=== PATIENT | male | born 1985 | race Caucasian/White ===

== ENCOUNTER 2017-02-24 14:11 | Emergency (ER) | payer SELFPAY ==
[~2017-02-24] VITALS: Ht 172.7 cm; Wt 90.6 kg
[2017-02-24] MEDS ORDERED: SKELAXIN800 MG PO (15:35)
[2017-02-24] MEDS ORDERED: NAPROSYN500 MG PO (15:35)
[2017-02-24 15:47] VITALS: BP 128/71
== END 2017-02-24 15:47 | disposition home or self-care (01) ==
LOC: EME 14:11
DX: S16.1XXA Strain of muscle, fascia and tendon at neck level, initial encounter (principal); M43.6 Torticollis; X50.9XXA Other and unspecified overexertion or strenuous movements or postures, initial encounter; Y93.83 Activity, rough housing and horseplay; Z87.891 Personal history of nicotine dependence; Z90.81 Acquired absence of spleen
CPT/HCPCS: 99281; 99283; J1885

== ENCOUNTER 2017-05-31 10:59 | Inpatient (IN) | payer OTHER ==
[~2017-05-31] VITALS: Ht 172.7 cm; Wt 85.7 kg
[~2017-05-31 10:59] MED LIST: NAPROSYN500 MG PO; SKELAXIN800 MG PO
[2017-05-31 12:10] LABS: PLATELET COUNT 438 K/uL (156-360)
[2017-05-31 12:15] LABS: HEMATOCRIT 50.8 % (38.0-50.0); HEMOGLOBIN 17.6 G/DL (12.5-16.6); MCH 30.3 PG (29.0-34.0); MCHC 34.6 G/DL (30.0-36.0); MCV 87.6 FL (86-99); RBC DIS.WIDTH-CV 13.5 % (11.8-14.6); RBC DIS.WIDTH-SD 43.2 % (39-53)
[2017-05-31 12:17] LABS: WHITE BLOOD COUNT 32.2 K/uL (4.1-10.2)
[2017-05-31 12:20] LABS: ALBUMIN 4.6 g/dL (3.2-4.8); CHLORIDE 106 mEq/L (99-109); POTASSIUM 4.2 mEq/L (3.7-5.4); SODIUM 140 mEq/L (136-147)
[2017-05-31 12:22] LABS: GLUCOSE 109 mg/dL (70-99); TOTAL PROTEIN 8.8 g/dL (6.4-8.3)
[2017-05-31 12:26] LABS: ALKALINE PHOSPHATASE 93 IU/L (3-129); CREATININE 0.9 mg/dL (0.6-1.3); GFR ESTIMATE (CALCULATED) > 59 mL/min/ (58.99-99999)
[2017-05-31 12:27] LABS: AST (GOT) 29 IU/L (2-34); UREA NITROGEN (BUN) 19 mg/dL (9-23)
[2017-05-31 12:29] LABS: ALT (GPT) 30 IU/L (3-49)
[2017-05-31 13:32] LABS: LIPASE 21 U/L (1.0-51.0)
[2017-05-31 13:53] LABS: DIRECT BILIRUBIN 0.1 mg/dL (0.0-0.3)
[2017-05-31 13:57] LABS: TROP-I INTERPRETATION NEGATIVE; TROPONIN-I < 0.01 ng/mL (0.0-0.30)
[2017-05-31 14:49] LABS: APPEARANCE SL.HAZY ((CLEAR)); BILIRUBIN NEGATIVE; BLOOD NEGATIVE; COLOR YELLOW ((YELLOW)); GLUCOSE (STRIP) NEGATIVE; KETONES 20; LEUKOCYTES NEGATIVE; NITRITE NEGATIVE; PROTEIN (STRIP) NEGATIVE; SPECIFIC GRAVITY 1.023 (1.000-1.030); UROBILINOGEN 0.2 MG/DL (0.2-1.0)
[2017-05-31 14:54] LABS: BACTERIA NONE SEEN /HPF; EPITHELIAL CELLS NONE SEEN /HPF; MUCUS 2+ /LPF; RED BLOOD CELLS 0-5 /HPF (0-5); UCUL ADDED? NO; WHITE BLOOD CELLS 0-5 /HPF (0-5)
[2017-05-31 15:50] LABS: C DIFF TOXIN NEGATIVE (NEGATIVE)
[2017-05-31] MEDS ORDERED: B-COMPLEX-VITA1 EACH PO (16:30)
[2017-05-31] MEDS ORDERED: ASCORBIC ACID500 M3 PO (16:30)
[2017-05-31 19:30] VITALS: BP 135/84
[2017-05-31 19:34] VITALS: BP 135/84
[2017-05-31 23:31] VITALS: BP 131/80
[2017-06-01 03:52] VITALS: BP 116/65
[2017-06-01 06:22] LABS: BASOPHIL (%) 0.4 % (0-1); BASOPHIL COUNT 0.1 K/uL (0-0.1); EOSINOPHIL (%) 0.5 % (0-5); EOSINOPHIL COUNT 0.1 K/uL (0-0.3); HEMATOCRIT 42.3 % (38.0-50.0); IMMATURE GRANULOCYTE (%) 0.5 % (0.0-0.7); LYMPHOCYTE (%) 18.3 % (15-42); LYMPHOCYTE COUNT 3.6 K/uL (1.0-2.8); MCH 29.8 PG (29.0-34.0); MCHC 33.6 G/DL (30.0-36.0); MCV 88.9 FL (86-99); MONOCYTE (%) 11.6 % (3-12); MONOCYTE COUNT 2.3 K/uL (0-0.8); NEUTROPHIL (%) 68.7 % (45-76); NEUTROPHIL COUNT 13.5 K/uL (1.8-6.4); PLATELET COUNT 378 K/uL (156-360); RBC DIS.WIDTH-SD 45.2 % (39-53); RED BLOOD COUNT 4.76 M/uL (4.00-5.50); WHITE BLOOD COUNT 19.6 K/uL (4.1-10.2)
[2017-06-01 06:24] LABS: CHLORIDE 109 MEQ/L (99-109); CREATININE 0.8 MG/DL (0.6-1.3); GFR ESTIMATE (CALCULATED) > 59 mL/min/ (58.99-99999); GLUCOSE 87 mg/dL (70-99); POTASSIUM 3.8 MEQ/L (3.7-5.4); SODIUM 141 MEQ/L (136-147); UREA NITROGEN (BUN) 13 mg/dL (9-23)
[2017-06-01 06:26] LABS: HEMOGLOBIN 14.2 G/DL (12.5-16.6)
[2017-06-01 07:58] VITALS: BP 133/92
[2017-06-01 10:56] VITALS: BP 130/78
[2017-06-01 15:48] VITALS: BP 138/90
[2017-06-01 18:50] VITALS: BP 127/85
[2017-06-01 23:00] VITALS: BP 117/78
[2017-06-02 04:00] VITALS: BP 130/76
[2017-06-02 06:03] LABS: HEMATOCRIT 44.7 % (38.0-50.0); HEMOGLOBIN 14.7 G/DL (12.5-16.6); MCH 29.5 PG (29.0-34.0); MCHC 32.9 G/DL (30.0-36.0); MCV 89.6 FL (86-99); PLATELET COUNT 393 K/uL (156-360); RBC DIS.WIDTH-SD 45.9 % (39-53); RED BLOOD COUNT 4.99 M/uL (4.00-5.50)
[2017-06-02 06:33] LABS: CHLORIDE 108 MEQ/L (99-109); CREATININE 0.8 MG/DL (0.6-1.3); GFR ESTIMATE (CALCULATED) > 59 mL/min/ (58.99-99999); GLUCOSE 83 mg/dL (70-99); MAGNESIUM 2.1 mg/dl (1.3-2.7); POTASSIUM 4.1 MEQ/L (3.7-5.4); SODIUM 140 MEQ/L (136-147); UREA NITROGEN (BUN) 12 mg/dL (9-23)
[2017-06-02] MEDS ORDERED: FLAGYL500 MG PO (08:15)
[2017-06-02] MEDS ORDERED: CIPRO500 MG PO (08:15)
[2017-06-02] MEDS ORDERED: ACIDOPHILUS LA1 EAC1 PO (08:27)
[2017-06-02 09:00] VITALS: BP 149/96
[2017-06-02 11:32] VITALS: BP 128/85
[2017-06-03] MEDS ORDERED: ZOFRAN ODT4 MG PO (13:55)
== END 2017-06-02 14:35 | disposition home or self-care (01) | DRG 872 ==
LOC: EME 10:59 → 4EAST 17:53 → EDOF 17:53 → ENRESERV 18:07 → 4EAST 19:14
PROVIDERS: Emergency Medicine; Hospitalist
DX: A41.89 Other specified sepsis (principal); A08.4 Viral intestinal infection, unspecified; Z90.81 Acquired absence of spleen; F17.210 Nicotine dependence, cigarettes, uncomplicated; E66.9 Obesity, unspecified; Z68.28 Body mass index [BMI] 28.0-28.9, adult; E86.0 Dehydration; K43.2 Incisional hernia without obstruction or gangrene; K42.9 Umbilical hernia without obstruction or gangrene; K52.29 Other allergic and dietetic gastroenteritis and colitis; K57.30 Diverticulosis of large intestine without perforation or abscess without bleeding
CPT/HCPCS: 71010; 74177; 80048; 80053; 80076; 81003; 82248; 83605; 83690; 83735; 84484; 85025; 85027; 87040; 87177; 87493; 99281; 99285; J0500; J1200; J1650; J1956; J2405; J7030; S0028; S0030

== ENCOUNTER 2017-06-03 07:55 | Emergency (ER) | payer OTHER ==
[~2017-06-03] VITALS: Ht 172.7 cm; Wt 90.4 kg
[~2017-06-03 07:55] MED LIST changes: +ACIDOPHILUS LA1 EAC1 PO; +ASCORBIC ACID500 M3 PO; +B-COMPLEX-VITA1 EACH PO; +CIPRO500 MG PO; +FLAGYL500 MG PO
[2017-06-03 10:26] LABS: BASOPHIL (%) 0.4 % (0-1); BASOPHIL COUNT 0.1 K/uL (0-0.1); EOSINOPHIL (%) 0.6 % (0-5); EOSINOPHIL COUNT 0.1 K/uL (0-0.3); HEMATOCRIT 46.2 % (38.0-50.0); HEMOGLOBIN 16.2 G/DL (12.5-16.6); IMMATURE GRANULOCYTE (%) 0.6 % (0.0-0.7); LYMPHOCYTE COUNT 3.3 K/uL (1.0-2.8); MCH 30.4 PG (29.0-34.0); MCHC 35.1 G/DL (30.0-36.0); MCV 86.7 FL (86-99); MONOCYTE (%) 9.8 % (3-12); MONOCYTE COUNT 1.9 K/uL (0-0.8); NEUTROPHIL (%) 71.6 % (45-76); PLATELET COUNT 399 K/uL (156-360); RBC DIS.WIDTH-CV 13.4 % (11.8-14.6); RBC DIS.WIDTH-SD 42.3 % (39-53); RED BLOOD COUNT 5.33 M/uL (4.00-5.50); WHITE BLOOD COUNT 19.6 K/uL (4.1-10.2)
[2017-06-03 10:36] LABS: ALBUMIN 3.9 g/dL (3.2-4.8)
[2017-06-03 10:37] LABS: CHLORIDE 110 mEq/L (99-109); POTASSIUM 3.9 mEq/L (3.7-5.4); SODIUM 138 mEq/L (136-147)
[2017-06-03 10:39] LABS: GLUCOSE 102 mg/dL (70-99)
[2017-06-03 10:42] LABS: ALKALINE PHOSPHATASE 73 IU/L (3-129)
[2017-06-03 10:43] LABS: CREATININE 0.7 mg/dL (0.6-1.3); GFR ESTIMATE (CALCULATED) > 59 mL/min/ (58.99-99999)
[2017-06-03 10:44] LABS: AST (GOT) 25 IU/L (2-34); UREA NITROGEN (BUN) 15 mg/dL (9-23)
[2017-06-03 10:45] LABS: ALT (GPT) 25 IU/L (3-49)
[2017-06-03 10:49] LABS: TOTAL BILIRUBIN 0.5 mg/dL (0.0-1.0); TOTAL PROTEIN 6.8 g/dL (6.4-8.3)
[2017-06-03] MEDS ORDERED: ZOFRAN ODT4 MG PO (13:55)
[2017-06-03 15:17] VITALS: BP 127/88
== END 2017-06-03 18:49 | disposition home or self-care (01) ==
LOC: EME 07:55
PROVIDERS: Emergency Medicine
DX: E86.0 Dehydration (principal); R11.2 Nausea with vomiting, unspecified; R19.7 Diarrhea, unspecified; Z90.81 Acquired absence of spleen; Z86.19 Personal history of other infectious and parasitic diseases; F17.200 Nicotine dependence, unspecified, uncomplicated; F19.11 Other psychoactive substance abuse, in remission; Z88.0 Allergy status to penicillin
CPT/HCPCS: 80053; 83605; 85025; 87506; 99281; 99284; J0780; J1200; J2405; J7030